=== PATIENT | male | born 1960 | race Caucasian/White ===

== ENCOUNTER → 2016-08-15 | Outpatient (CLI) | payer BC ==
--- NOTE | 2016-08-16 10:58 | ECHOF ---
Referral Reason:R01.1 Heart Murmur MEASUREMENTS -------- HEIGHT: 180.3 cm WEIGHT: 88.9 kg BP: 140/63 IVSd: 0.7 cm (0.6 - 1.1) LVIDd: 4.9 cm (3.9 - 5.3) LVPWd: 1.0 cm (0.6 - 1.1) IVSs: 1.6 cm LVIDs: 2.5 cm LVPWs: 1.8 cm Ao Diam: 2.7 cm (2.0 - 3.7) AV Cusp: 1.5 cm (1.5 - 2.6) LA Diam: 3.6 cm (2.7 - 3.8) MV EXCURSION: 20.130 mm (> 18.000) MV EF SLOPE: 125 mm/s (70 - 150) EPSS: 0.2 cm MV E Good: 0.77 m/s MV DecT: 181 ms MV A Good: 0.82 m/s MV E/A Ratio: 0.94 RAP: 5.00 mmHg RVSP: 11.07 mmHg FINDINGS -------- Sinus rhythm. This was a technically good study. Left ventricular wall thickness is normal. Overall left ventricular systolic function is normal with, an EF between 55 - 60 %. The right ventricle is normal in size and function. The left atrium is normal in size. The right atrium is normal in size. Aortic valve is trileaflet and is mildly thickened. The mitral valve leaflets are mildly thickened. Mild mitral regurgitation is present. Mild tricuspid regurgitation present. The right ventricular systolic pressure, as measured by Doppler, is 11.07mmHg. Pulmonic valve appears structurally normal. The aortic root size is normal. The pericardium is normal. CONCLUSIONS -------- 1. Sinus rhythm. 2. Mild mitral regurgitation is present. 3. Mild tricuspid regurgitation present. 4. The right ventricular systolic pressure, as measured by Doppler, is 11.07mmHg. 5. Pulmonic valve appears structurally normal. 6. The aortic root size is normal. 7. The pericardium is normal. 8. This was a technically good study. 9. Left ventricular wall thickness is normal. 10. Overall left ventricular systolic function is normal with, an EF between 55 - 60 %. 11. The right ventricle is normal in size and function. 12. The left atrium is normal in size. 13. The right atrium is normal in size. 14. Aortic valve is trileaflet and is mildly thickened. 15. The mitral valve leaflets are mildly thickened. [employer]PER [employer]: Daniela Ruth RDCS
== END | disposition home or self-care (01) ==
LOC: RADECHMAIN 11:23
PROVIDERS: ATTEND Family Medicine
DX: I08.3 Combined rheumatic disorders of mitral, aortic and tricuspid valves (principal)
CPT/HCPCS: 93306

== ENCOUNTER → 2023-07-31 | Outpatient (CLI) | payer MEDICARE ==
--- NOTE | 2023-07-31 22:50 | CTL ---
EXAMINATION TYPE: CT Low Dose Lung DATE OF EXAM: 07/31/2023 2:48 PM CLINICAL INDICATION:Male, 63 years old with history of Z12.2 SCREENING LUNG CA F17.210 CURRENT SMOKER ; Current every day smoker, 1 pack a day x 41 years. , history of tobacco use. COMPARISON: None. TECHNIQUE: Multiple axial non-contrast scans were obtained from approximately the lung apices through the upper abdomen. Coronal and sagittal reformatted images were obtained. Low dose technique was uti lized. CT DLP: 130.6 mGycm, Automated exposure control for dose reduction was used. CT Contrast: Contrast used: None Oral contrast used: None FINDINGS: ======== Lack of intravenous contrast and low dose technique limits the evaluation of the vascular and soft ti ssue structures. LUNGS: No evidence of pulmonary fibrosis. No evidence of focal consolidation, pneumothorax or pleural effusion. Nodules: RUL: 5 mm right upper lobe solid nodule (4:95). 3 mm solid right upper lobe pulmonary nodule (4:1 23), additional pulmonary micronodules are present in the right upper lung. RML: 4 mm solid right middle lobe pleura nodule (4:186), additional pulmonary micronodules are pr esent within the right middle lung. RLL: 4 mm right lower lung solid pulmonary nodule (4:200), 4 mm right lower lobe solitary pulmona ry nodule (4:173), additional pulmonary micronodules are identified within the right lower lung. ALLA: A few pulmonary micronodules are present in the left upper lung, 7 mm left upper lung solid nodule (4:139). LLL: None. AIRWAY: Patent and unremarkable. HEART: Size within normal limits. MEDIASTINUM: No gross evidence of adenopathy. VASCULATURE: Atherosclerotic calcifications are present throughout the aorta and its branches. MUSCULOSKELETAL: No acute osseous abnormalities SOFT TISSUES/LYMPH NODES: Unremarkable. LOWER NECK: No significant findings. UPPER ABDOMEN: No significant findings. IMPRESSION: Multiple scattered pulmonary nodules as described. CT LUNG RAD AND CT CHEST RECOMMENDATION: Lung-Rad 3 Probably Benign: 6 month follow-up LDCT. S Modifier (other clinically significant findings): None Recommend smoking cessation (if current smoker), or continuation of smoking cessation (if prior smoke r). Annual screening for lung cancer with low-dose computed tomography is recommended in adults ages 55 to 77 years who have a 30 pack-year smoking history and currently smoke or have quit within the pa st 15 years. Screening should be discontinued once a person has not smoked for 15 years or develops a health problem that substantially limits life expectancy or the ability or willingness to have curat angie lung surgery. Lung rads 2021 [email or web address]
== END | disposition home or self-care (01) ==
LOC: RADCTMAIN 13:51
PROVIDERS: ATTEND Family Medicine
DX: Z12.2 Encounter for screening for malignant neoplasm of respiratory organs (principal); R91.8 Other nonspecific abnormal finding of lung field; F17.210 Nicotine dependence, cigarettes, uncomplicated
CPT/HCPCS: 71271

== ENCOUNTER → 2024-02-15 | Outpatient (CLI) | payer MEDICARE ==
--- NOTE | 2024-02-15 10:32 | CTL ---
EXAMINATION TYPE: CT Low Dose Lung DATE OF EXAM ORDERED: 02/15/2024 COMPARISON: 07/31/2023 CLINICAL INDICATION: Male, 63 years old with history of Z12.2 LUNG CA SCREEN R91.8 ABNORMAL LUNG FIEL D; PH[facility], current smoker 1PPD x41 years, Lung cancer screening, History of Smoking/tobacco use. TECHNIQUE: Low dose computed tomography scan was performed through the chest at 1 mm thick sections a nd reconstructed images in multiple planes at 1 mm and [address] DLP: 118.[address] CTDI: 3.0 mGy Automated exposure control for dose reduction was used. CT DIAGNOSTIC QUALITY: Satisfactory FINDINGS: There are mild upper lobe emphysematous changes. There are multiple stable scattered micronodules in the 5 mm nodule in the right upper lobe, the 4 mm nodule in the right middle lobe, the 4 mm nodule in the right lower lobe and a 7 mm nodule left uppe r lobe have markedly decreased in size and are now micronodules. There are no suspicious nodules. There is no airspace consolidation. There is no pleural effusion or pneumothorax. Heart and pulmonary vasculature appear normal. There is no mediastinal, hilar or axillary adenopathy. Cardiac Limited scanning through the upper abdomen reveals no gross abnormality. No focal osseous lesions are seen. IMPRESSION: 1. Marked decrease in the multiple 4 to 5 mm nodules in the right lung and left upper lobe. There are scattered micronodules. 2. Lung RADS category 2, benign findings, continued routine screening at yearly intervals. 3. Mild emphysematous changes. 4. No acute cardiopulmonary disease. [facility], , 02/15/2024 10:29 AM
== END | disposition home or self-care (01) ==
LOC: RADCTMAIN 09:59
PROVIDERS: ATTEND Family Medicine
DX: Z12.2 Encounter for screening for malignant neoplasm of respiratory organs (principal); F17.210 Nicotine dependence, cigarettes, uncomplicated; J43.9 Emphysema, unspecified; R91.8 Other nonspecific abnormal finding of lung field
CPT/HCPCS: 71271